=== PATIENT | male | born 1950 | race Caucasian/White ===

== ENCOUNTER 2023-04-13 10:34 | Outpatient (CLI) | payer MEDICARE, BC ==
--- NOTE | 2023-04-13 11:37 | SLEEP CARE CONSULTATION ---
Information from patient questionnaire entered by Betzy Fry. I have reviewed and concur with the information entered by Betzy Fry. This document represents the service I personally performed and the decisions made by me, Jose Rafael Pizarro MD, [facility]. History of Present Illness Service Date and Time: 04/13/2023 1034 Reason for Visit: New patient Chief Complaint: reports: Other (UPDATE SUPPLIES) Date of Onset: YRS Usual bedtime: 2AM Time it takes to fall asleep: 10MIN Snores at night: Yes Observed to quit breathing while asleep: Yes Sleeps alone due to snoring: No Number of times waking at night: 0 Toss, Turn, or Twitch while sleeping: No Recalls having dreams: Yes Usually gets out of bed at: 9-10AM Feels refreshed in the morning: Yes Morning headache: No Sleepy or fatigued during the day: No Ever fallen asleep while driving: No Takes day naps: No Dreams during day naps: Yes Prior sleep studies: Yes Additional HPI information: I had the pleasure of seeing Mr. Moreno and his today regarding obstructive sleep apnea-hypopnea. As you know, he is a 72-year-old gentleman who was diagnosed with the sleep-disordered breathing at [facility] in [place] in 2013. The AHI was 84.9 and ricardo oxygen saturation, 84%. He was prescribed a CPAP device set at 12 18 cmH2O. He uses the [employer] Resp[employer]ics DreamStation 1 autoCPAP every night and all night. The compliance data show usage in 90 out of the past 90 nights, averaging 7.2 hours a night. The > 4 hour compliance rate for the past 30 days is 100%. The residual AHI is 1.1 and average time in large leak per day is 2 minutes. He wears a ResMed F20 full face mask because he breathes through his mouth at night. He acquired the [employer]ics DreamStation autoCPAP from [employer] [employer]. but has not gotten any supplies for years. He finds the treatment very beneficial. He has never registered his machine to see if it is recalled. - Parasomnia Symptoms Ever been unable to move upon waking from sleep: No Walks in sleep: No Talks in sleep: No Ever acted out dreams in sleep: No Ever felt weak in the knees when startled or emotional: No Bothered by creepy, crawly, restless sensations in legs: No Problems with memory or concentration: Yes Subjective Initial [place] Sleepiness Scale score: 3 (04/10/23) Past Medical History Past Medical History: reports: Hypertension, Diabetes, GERD Social History The patient's occupation is a RE. Patient is and lives in [place]. Have you smoked in the past 12 months: No Alcohol use: Yes Alcohol amount and frequency: 1 GLASS 1 X MONTH Caffeine use: Yes Caffeine amount and frequency: 1 CAN SODA Family History Family history of sleep disordered breathing: Yes Family Hx Sleep Apnea: Mother: Snoring, Sleep apnea - Untreated Allergies and Home Medications Known drug allergies: No Drug allergies reviewed: Yes Home medication list reviewed: Yes Review of Systems Weight loss over past 5 years: 20 Cardiovascular: reports: high blood pressure Respiratory: denies: shortness of breath, wheeze, sputum production, chronic cough, other Gastrointestinal: reports: heartburn Urinary: reports: urgency Neurological: denies: headaches, seizure, head trauma, disorientation, speech dysfunction, gait or balance problems, fainting or unconsciousness, other Ear/Nose/Throat: reports: dry mouth/throat, wisdom teeth removed Endocrine: denies: thyroid disease, history of goiter, sluggishness, too hot or cold, excessive thirst, increased appetite, increased urination, unexplained weakness, other Musculoskeletal: denies: joint pain, neck pain, back pain, joint swelling, muscle pain or cramping, mobility problems, other Immunologic: reports: sneezing, rash Physical Exam Vital signs obtained and entered by: BETZY Dempsey MA Blood Pressure: 118/62 (LEFT ARM) Cuff size: regular Heart Rate: 55 O2 Saturation: 97 Height: 5 ft 5.25 in Weight: 262 lb 6.4 oz Body Mass Index: 43.3 BMI Classification: Morbidly Obese Neck circumference: 17.25 Mood/affect: Normal HEENT: No craniofacial malformation Nostrils: patent to airflow Turbinates: normal Septum: midline Mouth and throat: narrow oropharynx Soft palate: long Hard palate: normal Uvula visualization: 25% Mallampati Class III Tongue: normal in size Chin and jaw: normal size and position Heart: regular rate and rhythm Lungs: clear bilaterally Extremities: 1+ edema Neurologic: intact Impression and Plan IMPRESSION: 1. Obstructive Sleep Apnea-Hypopnea Syndrome, very severe, as previously diagnosed. The patient has good treatment compliance and experiences tremendous improvement on the treatment. The current pressure setting appears effective and comfortable. He is advised to register his machine for a replacement. I gave the website where he can enter his machines serial number. He is not due for a new machine until 2024. Plan: 1. Leave the autoCPAP set at the current setting of 12 18 cmH2O. 2. [place] the [employer] DreamStation to see if it is recalled and get a replacement machine. 3. Try to lose weight. 4. Prescription made for supplies through [employer]. 5. Return for a follow-up a year or earlier if there is any problem. Continue with device pressure at (cmH2O): 12-18 Counseling Topics: Weight control Prescriptions: Device supplies Follow up with Sleep Care in: 1 year Visit Type: In Office Other Participants: Spouse/Significant Other Time Spent with Patient (minutes): 15 Provider Statement: I spent 100% of the Face to Face Visit with the patient with greater than 50% spent counseling the patient and coordination of care.
[2023-04-13 11:42] VITALS: BP 118/62
== END 2023-04-13 10:35 | disposition home or self-care (01) ==
LOC: SC 10:34
PROVIDERS: ATTEND Internal Medicine Pulmonary Disease
DX: G47.33 Obstructive sleep apnea (adult) (pediatric) (principal); E66.01 Morbid (severe) obesity due to excess calories; Z68.41 Body mass index [BMI] 40.0-44.9, adult
CPT/HCPCS: 99202; G0463; 99212

== ENCOUNTER 2024-04-13 11:00 | Outpatient (CLI) | payer MEDICARE, BC ==
--- NOTE | 2024-04-13 11:44 | Sleep Patient Instructions ---
Sleep Center Visit Summary - Patient Visit Information Reason for Visit: Annual follow-up - Patient Instructions Additional Instructions: You will continue with CPAP therapy with pressure set at 12-18 cmH2O. A supply prescription will be updated with your DME. We encourage you to continue to try to lose weight. Please follow up with the sleep care office in 1 year. - Clinic Information Contact: [facility] [address] [place] [address] [email or web address] T: [phone]
--- NOTE | 2024-04-13 11:53 | SLEEP CARE CONSULTATION ---
Information from patient questionnaire entered by Betzy Fry. I have reviewed and concur with the information entered by Betzy Fry. This document represents the service I personally performed and the decisions made by me, Denisse Liu ARNP. History of Present Illness Service Date and Time: 04/13/2024 1100 Previous diagnosis: Very Severe, Obstructive Sleep Apnea-Hypopnea Syndrome AHI: 84.9 (in 2013) Reason for follow up: annual (LAST SEEN 03/2023) Accompanied by: Spouse (Rebeca) Equipment type: CPAP Equipment obtained from: Other ([employer], getting supplies) Mask style: Full face Mask brand: Respironics Backup mask available: Yes Last cushion change: 1 month Prior sleep studies: Yes HPI additional information: MIREILLE PALOMARES was diagnosed to have very severe, AHI 84.9, obstructive sleep apnea-hypopnea syndrome and returned today with spouse for CPAP therapy annual follow-up. Sleep Study - Results Prior sleep studies: Yes CPAP Compliance Data - Data Reviewed with Patient Average duration of nightly device use: 7 hours 12 minutes Compliance rate %: 99.4 (180/180 days used) Current pressure setting (cmH2O): 12-18 Average residual AHI: 0.9 Central apnea: 0 Obstructive apnea: 0.2 Hypopnea: 0.7 Average large leak: 3 mins 31 secs Subjective Missed days of use due to: reports: travel, other (power outage) Patient concerns: reports: mask leak noise. denies: aerophagia, mask discomfort, air blowing in eyes, condensation in mask/hose, nasal congestion, dry mouth, nose, throat, epistaxis Observed to snore while using device: No Current pressure setting perceived as: comfortable On therapy, patient: reports: sleeping better, awakening more refreshed, being more awake and alert during the day, more rested overall. denies: drowsiness while driving Initial [place] Sleepiness Scale score: 3 (04/10/23) Current [place] Sleepiness Scale score: 1 (04/13/24) Allergies and Home Medications Known drug allergies: No Drug allergies reviewed: Yes Home medication list reviewed: Yes (no changes) Allergy and home medication list: Allergies No Known Drug Allergies Allergy (Verified 04/11/24 10:42) Review of Systems Review of systems same as previous: Yes (NO CHANGE) Physical Exam Vital signs obtained and entered by: BETZY Dempsey MA Blood Pressure: 137/66 (RIGHT ARM) Cuff size: long Heart Rate: 62 O2 Saturation: 97 Height: 5 ft 5.25 in Weight: 258 lb 9.6 oz Weight change since last visit: 4 lb loss Body Mass Index: 42.7 BMI Classification: Morbidly Obese Impression and Plan 1. Obstructive Sleep Apnea-Hypopnea Syndrome, very severe, with good treatment compliance and good apnea control. On CPAP therapy, the patient has better sleep quality and is more rested overall. He has significant improvement of his sleep apnea and is satisfied with current therapy. He has no significant concerns or issues with CPAP use. We will follow up with him next year. Patient's apnea severity and rationale for treatment to reduce apnea, improve sleep quality and reduce cardiovascular and cerebrovascular events was reviewed. I also reviewed the benefit of consistent device use of CPAP for hypertension, diabetes, gastric reflux. 2. Obesity, unspecified. Currently patients BMI is 42.7. Obesity increases the risk of apnea, CPAP pressure requirements and overall health risks especially cardiovascular and diabetes. Thus patient is advised to continue to try to lose weight. * Continue auto CPAP pressure at 12-18 cmH2O * Update supply prescription * Notify me if snoring with mask or feeling that the pressure is too much or too little * Attempt to lose weight * Call this office if any problems using CPAP * Return for follow up in 12 months, or sooner if concerns arise Counseling Topics: Spare mask, Weight loss health impact Prescriptions: Device supplies Follow up with Sleep Care in: 1 year Visit Type: In Office Time Spent with Patient (minutes): 20 Provider Statement: I spent 100% of the Face to Face Visit with the patient with greater than 50% spent counseling the patient and coordination of care.
[2024-04-13 12:00] VITALS: BP 137/66; O2SAT 97
== END 2024-04-13 11:01 | disposition home or self-care (01) ==
LOC: SC 11:00
PROVIDERS: ATTEND Nurse Practitioner Family
DX: G47.33 Obstructive sleep apnea (adult) (pediatric) (principal); E66.01 Morbid (severe) obesity due to excess calories; Z68.41 Body mass index [BMI] 40.0-44.9, adult
CPT/HCPCS: 99213; G0463; 99212